=== PATIENT | male | born 1995 | race Caucasian/White ===

== ENCOUNTER 2020-08-17 07:29 | Emergency (ER) | payer BC ==
[~2020-08-17] VITALS: Ht 180.3 cm; Wt 70.0 kg
[2020-08-17 07:39] VITALS: BP 124/78
== END 2020-08-17 08:40 | disposition left against medical advice (07) ==
LOC: ER 07:46
DX: T39.1X1A Poisoning by 4-Aminophenol derivatives, accidental (unintentional), initial encounter (principal); F20.9 Schizophrenia, unspecified; F11.10 Opioid abuse, uncomplicated; Y92.018 Other place in single-family (private) house as the place of occurrence of the external cause
CPT/HCPCS: 99283